=== PATIENT | female | born 1970 | race Caucasian/White ===

== ENCOUNTER 2021-11-19 11:43 | Outpatient (REF) | payer OTHER, SELFPAY ==
--- NOTE | ~2021-11-19 | XR_ITS ---
EXAMINATION: XR HIP BILATERAL WITH AP PELVIS XR HAND/WRIST, BILATERAL CLINICAL INFORMATION: Bilateral primary osteoarthritis of hip and hand. Pain in joints of bilateral hands. COMPARISON: None TECHNIQUE: 2 views views of each hip were obtained. 4 views each hand/wrist. FINDINGS: RIGHT HIP: There is no visible acute fracture or dislocation. The joint space is maintained normal. No loose bodies or spurring seen. The soft tissues are normal. LEFT HIP: There is no visible acute fracture or dislocation seen. The joint space is maintained normal. No loose bodies or spurring seen. The soft tissues are normal. RIGHT HAND/WRIST: There is no visible acute fracture, dislocation or subluxation seen. No bony erosive changes. The soft tissues are normal. XR/XR hand wrist RT IMPRESSION: Unremarkable bilateral hip exam. Unremarkable bilateral hip exam.
--- NOTE | ~2021-11-19 | XR_ITS ---
EXAMINATION: XR HIP BILATERAL WITH AP PELVIS XR HAND/WRIST, BILATERAL CLINICAL INFORMATION: Bilateral primary osteoarthritis of hip and hand. Pain in joints of bilateral hands. COMPARISON: None TECHNIQUE: 2 views views of each hip were obtained. 4 views each hand/wrist. FINDINGS: RIGHT HIP: There is no visible acute fracture or dislocation. The joint space is maintained normal. No loose bodies or spurring seen. The soft tissues are normal. LEFT HIP: There is no visible acute fracture or dislocation seen. The joint space is maintained normal. No loose bodies or spurring seen. The soft tissues are normal. RIGHT HAND/WRIST: There is no visible acute fracture, dislocation or subluxation seen. No bony erosive changes. The soft tissues are normal. XR/XR hand wrist LT IMPRESSION: Unremarkable bilateral hip exam. Unremarkable bilateral hip exam.
--- NOTE | ~2021-11-19 | XR_ITS ---
EXAMINATION: XR HIP BILATERAL WITH AP PELVIS XR HAND/WRIST, BILATERAL CLINICAL INFORMATION: Bilateral primary osteoarthritis of hip and hand. Pain in joints of bilateral hands. COMPARISON: None TECHNIQUE: 2 views views of each hip were obtained. 4 views each hand/wrist. FINDINGS: RIGHT HIP: There is no visible acute fracture or dislocation. The joint space is maintained normal. No loose bodies or spurring seen. The soft tissues are normal. LEFT HIP: There is no visible acute fracture or dislocation seen. The joint space is maintained normal. No loose bodies or spurring seen. The soft tissues are normal. RIGHT HAND/WRIST: There is no visible acute fracture, dislocation or subluxation seen. No bony erosive changes. The soft tissues are normal. XR/XR hips ZENOBIA min 3V IMPRESSION: Unremarkable bilateral hip exam. Unremarkable bilateral hip exam.
== END 2021-11-19 11:44 | disposition home or self-care (01) ==
LOC: HO.XRAY 11:43
PROVIDERS: PCP Internal Medicine; Visit Provider Student in an Organized Health Care Education/Training Program
DX: M25.542 Pain in joints of left hand (principal); M25.541 Pain in joints of right hand; M16.0 Bilateral primary osteoarthritis of hip; M25.50 Pain in unspecified joint; M79.7 Fibromyalgia; Z79.899 Other long term (current) drug therapy
CPT/HCPCS: 73110; 73130; 73522; 99202

== ENCOUNTER → 2021-12-18 11:38 | Outpatient (BNVA) | payer OTHER, SELFPAY | PROVIDERS: PCP Internal Medicine; Visit Provider Student in an Organized Health Care Education/Training Program | DX: M65.311 Trigger thumb, right thumb (principal); M70.62 Trochanteric bursitis, left hip; M79.7 Fibromyalgia | CPT/HCPCS: 20550; 99212 ==

== ENCOUNTER → 2022-01-01 09:40 | Outpatient (BNVA) | payer OTHER, SELFPAY | PROVIDERS: PCP Internal Medicine; Visit Provider Student in an Organized Health Care Education/Training Program | DX: M70.61 Trochanteric bursitis, right hip (principal) | CPT/HCPCS: 20610; 99212 ==

== ENCOUNTER → 2022-01-27 14:42 | Outpatient (BNVA) | payer OTHER, SELFPAY | PROVIDERS: PCP Internal Medicine; Visit Provider Student in an Organized Health Care Education/Training Program | DX: M70.62 Trochanteric bursitis, left hip (principal); M79.7 Fibromyalgia | CPT/HCPCS: 20610; 99212 ==

== ENCOUNTER → 2022-01-29 11:57 | Outpatient (BNVA) | payer OTHER, SELFPAY | PROVIDERS: PCP Internal Medicine; Referring Provider Internal Medicine; Visit Provider Physician Assistant | DX: E66.01 Morbid (severe) obesity due to excess calories (principal); M79.7 Fibromyalgia; F31.9 Bipolar disorder, unspecified; E11.9 Type 2 diabetes mellitus without complications; E78.00 Pure hypercholesterolemia, unspecified; K21.9 Gastro-esophageal reflux disease without esophagitis; F41.9 Anxiety disorder, unspecified; G47.33 Obstructive sleep apnea (adult) (pediatric); Z99.89 Dependence on other enabling machines and devices; J45.909 Unspecified asthma, uncomplicated; J44.9 Chronic obstructive pulmonary disease, unspecified; M19.90 Unspecified osteoarthritis, unspecified site; Z68.43 Body mass index [BMI] 50.0-59.9, adult | CPT/HCPCS: 99212; Q3014 ==

== ENCOUNTER → 2022-02-24 09:00 | Outpatient (BNVA) | payer OTHER, SELFPAY | PROVIDERS: PCP Internal Medicine; Visit Provider Counselor Mental Health | DX: F31.32 Bipolar disorder, current episode depressed, moderate (principal); F41.9 Anxiety disorder, unspecified; E66.01 Morbid (severe) obesity due to excess calories | CPT/HCPCS: 90791 ==

== ENCOUNTER → 2022-03-04 10:30 | Outpatient (BNVA) | payer OTHER, SELFPAY | PROVIDERS: PCP Internal Medicine; Visit Provider Physician Assistant | DX: E66.01 Morbid (severe) obesity due to excess calories (principal); E11.9 Type 2 diabetes mellitus without complications; E78.00 Pure hypercholesterolemia, unspecified; K21.9 Gastro-esophageal reflux disease without esophagitis; F31.9 Bipolar disorder, unspecified; G47.33 Obstructive sleep apnea (adult) (pediatric); Z99.89 Dependence on other enabling machines and devices | CPT/HCPCS: Q3014 ==

== ENCOUNTER → 2022-03-09 11:11 | Outpatient (BNVA) | payer OTHER, SELFPAY | PROVIDERS: PCP Internal Medicine; Visit Provider Dietitian, Registered | DX: E66.01 Morbid (severe) obesity due to excess calories (principal); E11.9 Type 2 diabetes mellitus without complications; Z71.3 Dietary counseling and surveillance | CPT/HCPCS: 97802 ==

== ENCOUNTER → 2022-03-19 11:00 | Outpatient (BNVA) | payer OTHER, SELFPAY | PROVIDERS: PCP Internal Medicine; Visit Provider Counselor Mental Health | DX: F31.32 Bipolar disorder, current episode depressed, moderate (principal); F41.9 Anxiety disorder, unspecified; E66.01 Morbid (severe) obesity due to excess calories | CPT/HCPCS: 90834 ==

== ENCOUNTER → 2022-03-26 14:00 | Outpatient (BNVA) | payer OTHER, SELFPAY | PROVIDERS: PCP Internal Medicine; Visit Provider Physician Assistant | DX: E66.01 Morbid (severe) obesity due to excess calories (principal); F31.32 Bipolar disorder, current episode depressed, moderate; E11.9 Type 2 diabetes mellitus without complications | CPT/HCPCS: Q3014 ==

== ENCOUNTER → 2022-04-13 11:01 | Outpatient (BNVA) | payer OTHER, SELFPAY | PROVIDERS: PCP Internal Medicine; Visit Provider Physician Assistant | DX: E66.01 Morbid (severe) obesity due to excess calories (principal); E11.65 Type 2 diabetes mellitus with hyperglycemia; Z79.4 Long term (current) use of insulin; Z79.899 Other long term (current) drug therapy | CPT/HCPCS: Q3014 ==

== ENCOUNTER → 2022-04-28 09:41 | Outpatient (BNVA) | payer OTHER, SELFPAY | PROVIDERS: PCP Internal Medicine; Visit Provider Dietitian, Registered | DX: E66.01 Morbid (severe) obesity due to excess calories (principal); E11.9 Type 2 diabetes mellitus without complications; Z71.3 Dietary counseling and surveillance | CPT/HCPCS: 97803 ==

== ENCOUNTER → 2022-05-06 10:00 | Outpatient (BNVA) | payer OTHER, SELFPAY | PROVIDERS: PCP Internal Medicine; Visit Provider Physician Assistant | DX: E66.01 Morbid (severe) obesity due to excess calories (principal) | CPT/HCPCS: Q3014 ==

== ENCOUNTER 2022-05-14 13:59 | Outpatient (REF) | payer OTHER, SELFPAY ==
[2022-05-14 14:22] LABS: MANUAL DIFF FLAG NO
[2022-05-14 14:38] LABS: Basophils Absolute Auto 0.1 X10*3/uL (0.0-0.2); Basophils Percent Auto 0.5 % (0-2); Eosinophils Absolute Auto 0.1 X10*3/uL (0.0-0.4); Eosinophils Percent Auto 1.1 % (0-4); Hematocrit 46.1 % (37.0-47.0); Hemoglobin 14.5 g/dl (12.0-16.0); Imm Gran Abs Auto 0.05 X10*3/uL (0.00-0.03); Imm Gran Pct Auto 0.4 % (0.0-0.4); Lymphocytes Absolute Auto 3.5 X10*3/uL (1.2-4.9); Lymphocytes Percent Auto 28.6 % (20-40); Mean Corpuscular HGB Conc 31.5 g/dl (31.0-35.0); Mean Corpuscular Hemoglobin 27.3 pg (27.0-33.0); Mean Corpuscular Volume 86.7 fL (80.0-98.0); Monocytes Absolute Auto 0.8 X10*3/uL (0.1-1.2); Monocytes Percent Auto 6.8 % (2-11); Neutrophils Absolute Auto 7.7 x10*3/uL (2.0-8.3); Neutrophils Percent Auto 62.6 % (45-73); Platelet Count 352 X10*3/uL (160-400); Red Blood Count 5.32 X10*6/uL (4.20-5.50); Red Cell Distribution Width 14.3 % (11.0-16.0); White Blood Count 12.4 X10*3/uL (4.8-10.8)
[2022-05-14 14:48] LABS: Estimated Average Glucose 174 mg/dL; Hemoglobin A1c % 7.7 %
[2022-05-14 15:10] LABS: Alanine Aminotransferase 18 U/L (0-31); Albumin Level 4.1 g/dL (3.5-5.0); Alkaline Phosphatase 114 U/L (39-117); Anion Gap 16 (12-20); Aspartate Amino Transferase 17 U/L (5-31); Bilirubin Total 0.3 mg/dL (0.0-1.0); Blood Urea Nitrogen 20 mg/dL (9-16); C Reactive Protein 3.72 mg/dL (< or = 0.50); Calcium 9.5 mg/dL (8.4-10.2); Carbon Dioxide 31 mmol/L (22-29); Chloride 97 mmol/L (96-108); Cholesterol 186 mg/dL; Estimated Glomerular Filt Rate 57; Glucose Random 152 mg/dL (60-115); HDL Cholesterol 42 mg/dL; Iron 53 mcg/dL (30-160); LDL Cholesterol Calculated 103 mg/dl; Percent Iron Saturation 17 % (15-50); Potassium 4.1 mmol/L (3.3-5.1); Sodium 140 mmol/L (135-145); Total Iron Binding Capacity 312 mcg/dL (228-428); Total Protein 7.3 g/dL (6.5-8.0); Triglycerides 205 mg/dL; Unsaturated Iron Binding 259 ug/dL
[2022-05-14 15:38] LABS: Ferritin 46 ng/mL (10-250); Folate 3.9 ng/mL (> or = 4.0); Insulin 93 uU/mL (2-29); TSH reflex Free T4 1.89 uIU/mL (0.32-4.0); Vitamin B12 537 pg/mL (200-900); Vitamin D 25-OH Total 18.2 ng/mL (>30)
[2022-05-18 14:14] LABS: Calcium (PTHI) 9.7 mg/dL (8.6-10.4); PTHI 64 pg/mL (16-77)
[2022-05-19 06:03] LABS: Zinc 69 mcg/dL (60-130)
[2022-05-20 09:58] LABS: Vitamin A 47 mcg/dL (38-98)
[2022-05-22 18:09] LABS: Vitamin B1 7 nmol/L (8-30)
== END 2022-05-14 14:00 | disposition home or self-care (01) ==
LOC: HO.LAB 13:59
PROVIDERS: PCP Internal Medicine; Visit Provider Physician Assistant
DX: E66.01 Morbid (severe) obesity due to excess calories (principal); E11.9 Type 2 diabetes mellitus without complications; E78.00 Pure hypercholesterolemia, unspecified; K21.9 Gastro-esophageal reflux disease without esophagitis; G47.33 Obstructive sleep apnea (adult) (pediatric); Z99.89 Dependence on other enabling machines and devices
CPT/HCPCS: 36415; 80053; 80061; 82306; 82607; 82728; 82746; 83036; 83525; 83540; 83970; 84425; 84443; 84590; 84630; 85025; 86140

== ENCOUNTER → 2022-08-20 11:30 | Outpatient (BNVA) | payer OTHER, SELFPAY | PROVIDERS: PCP Internal Medicine; Visit Provider Student in an Organized Health Care Education/Training Program | DX: M79.7 Fibromyalgia (principal); M54.50 Low back pain, unspecified; M77.12 Lateral epicondylitis, left elbow; G89.29 Other chronic pain | CPT/HCPCS: 99212 ==

== ENCOUNTER 2022-10-23 10:50 | Outpatient (AMB) | payer OTHER, SELFPAY ==
--- NOTE | 2022-10-23 11:08 | MHC.OFFVIS ---
Intake Vital Signs 10/23/22 11:13 Height 4 ft 10 in Weight 263 lb 2 oz BMI 55.0 BP 140/86 H Blood Pressure Location Rt brachial Position Sitting Respiration 18 Pulse 72 Pulse Source Pulse Oximeter Pulse Oximetry (%) 94 Oxygen Delivery Method Room Air Intake Visit Reasons: Low Back Pain, Unspecified Allergies aspirin Adverse Reaction (Unknown, Verified 10/23/22 11:05) Unknown HPI HPI Comments History of Present Illness Details Sabina is a very pleasant 52-year-old female who presents to the office today for evaluation and management of her chronic lower back pain. Patient was referred here from Rheumatology where she follows for her fibromyalgia. Patient complaining of bilateral lower back pain radiating into the thigh and around to the groin. Pain started 2 years ago after she fell in the shower. She also complains of tenderness to her coccyx though she states that she has been evaluated for this pain in the past she had x-rays and was told that there is no fracture. Today patient reports 6/10 bilateral lower back pain that she described as burning, aching and stabbing. His she denies radiation of the pain past the level of the thighs. Patient reports she has tried nonsteroidal anti-inflammatory medication with minimal relief. Had an x-ray at [place] which we do not have results of for review today. This she has not tried muscle relaxers, physical therapy, chiropractor, acupuncture, massage. She does state that she had in injections of steroids in the past that did not provide her any relief. The patient reports that she had COVID in 2020 and has been dealing with residual effects which have significantly increased her all-over joint pain. She reports the pain is worse with sitting, using the stairs or laying on either side. She is starting PT next week. She denies red flag symptoms including loss of bowel, bladder or saddle anesthesia. In terms of muscle damage condition is described as throbbing, pounding, shooting, stabbing, sharp, pinching, hot, burning, tingling, aching, exhausting and sickening. She reports her pain is negatively impacting her mobility, sleep and overall functioning. Patient denies current use of tobacco, alcohol or illicit substances. Former 2 and half pack a day smoker quit in 2015. Patient denies implantable devices, pacemaker or defibrillator. [facility] Medical History Anxiety and depression Carpal tunnel syndrome Essential hypertension Severe obstructive sleep apnea Uncontrolled type 2 diabetes mellitus with hyperglycemia Surgical History History of carpal tunnel release of both wrists Hx of section Hx of tubal ligation Family History Mother Cancer Father No problems noted. 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 Review of Systems Const All systems reviewed & are unremarkable except as noted in HPI and below Physical Exam Vital Signs: Last Vital Signs Pulse 72 10/23/22 11:13 Resp 18 10/23/22 11:13 BP 140/86 H 10/23/22 11:13 Pulse Ox 94 10/23/22 11:13 Oxygen Delivery Method Room Air 10/23/22 11:13 BMI result Body Mass Index 55.0 General: awake, alert, oriented. Answers questions appropriately. Fully engaged in examination. Skin: warm, dry, intact without visible rashes or lesions. HEENT: Normocephalic. Conjuntivae clear without exudate. Sclera non-icteric. Hearing intact. Cardiac: External chest normal in appearance. Respiratory: No signs of trauma. No signs of respiratory distress. No cough, audible wheezing or stridor. Abdomen: without gross distension. Neurological: Oriented to person, place, time and situation. Thought process intact. Psychiatric: Appropriate mood and affect. Good judgment and insight. Back/Spine/Pelvis Other: Lumbar exam: Able to stand on bilateral tiptoes and bilateral heels. Able to transition from sit to stand unassisted. Ambulates with bilaterally normal heel strike and toe off Visual inspection without gross abnormality Tender to palpation over bilateral PSIS and coccyx Nontender to palpation over midline lumbar vertebrae ROM: limited secondary to pain with extension to 10 degrees. flexion to 45degrees Strength: 5/5 BLE Sensation: intact and symmetric BLE DTR: intact and symmetric Straight leg raises with and without dorsiflexion negative bilaterally SHAYLEE positive bilaterally L>R Thigh thrust positive bilaterally L>R Gaenslens postive bilaterally L>R Assessment & Plan Assessment & Plan (1) Sacroiliac joint dysfunction of both sides: Code(s): M53.3 - Sacrococcygeal disorders, not elsewhere classified (2) Coccygeal pain, chronic: Code(s): M53.3 - Sacrococcygeal disorders, not elsewhere classified; G89.29 - Other chronic pain Plan Mitch is a very pleasant 52-year-old female presents to the office today for evaluation management of her chronic lower back pain. History, physical exam and provocative testing most consistent with bilateral sacroiliac joint dysfunction. Patient is scheduled to start physical therapy on Wednesday, she will follow up here after physical therapy. Discussed options for treatment including diagnostic interventional testing, steroid injections, peripheral nerve stimulation with Sprint, RFA and more permanent neuromodulation. If she does not receive significant relief physical therapy will plan for fluoroscopy guided bilateral diagnostic sacroiliac joint injection with local anesthetic. All questions and concerns have been answered and patient agrees with the plan. Follow up in 3 weeks, sooner if needed. Coding Level of Care Code New Pt Level 4 (15827) Diagnoses Sacroiliac joint dysfunction of both sides M53.3 Coccygeal pain, chronic M53.3; G89.29
[2022-10-23 11:13] VITALS: BP 140/86; PULSE 72; RESP 18; O2SAT 94; BMI 55.0
== END 2022-10-23 11:40 | disposition home or self-care (01) ==
PROVIDERS: PCP Internal Medicine; Visit Provider Registered Nurse Emergency
DX: M53.3 Sacrococcygeal disorders, not elsewhere classified (principal); G89.29 Other chronic pain
CPT/HCPCS: 99204

== ENCOUNTER → 2022-10-23 10:50 | Outpatient (BNVA) | payer OTHER, SELFPAY | PROVIDERS: PCP Internal Medicine; Visit Provider Registered Nurse Emergency | DX: M53.3 Sacrococcygeal disorders, not elsewhere classified (principal); G89.29 Other chronic pain | CPT/HCPCS: 99202 ==

== ENCOUNTER 2023-01-28 12:46 | Outpatient (AMB) | payer OTHER, SELFPAY ==
--- NOTE | 2023-01-28 12:53 | A.OFFVIS_ITS ---
Intake VS Expanded 01/28/23 13:11 BP 150/70 H Blood Pressure Location Rt brachial Blood Pressure Position Sitting Pulse 77 Pulse Source Pulse Oximeter Temp 96.7 F L Temperature Source Temporal Artery Scan Pulse Oximetry 97 Oxygen Delivery Method Room Air Height 4 ft 10 in Weight 254 lb BMI 53.1 Body Fat % 49.9 Body Fat Mass 126.8 Fat Free Mass 127.2 Visceral Fat Rating 20.0 Body Water % 35.7 Body Water Mass 90.6 Muscle Mass/Score 120.8 Basal Metabolic Rate/Score 1,819 Intake Visit Reasons: (OV) Re-Est SWL Allergies aspirin Adverse Reaction (Unknown, Verified 01/28/23 13:01) Unknown Medication List - Last Reconciled 01/28/23 by Ignacia Castorena PA-C atorvastatin 20 mg PO DAILY buspirone 30 mg PO BID clonazepam 0.5 mg PO BID clonidine HCl 0.3 mg PO BEDTIME fluticasone propion-salmeterol 250-50 mcg/dose (Wixela Inhub) 1 inh inhalation BID furosemide 40 mg PO DAILY hydroxyzine HCl 50 mg PO TID insulin aspart U-100 (Novolog FlexPen U-100 Insulin aspart) 1 sliding scale dose subcut USEASDIRECTD insulin glargine (Lantus Solostar U-100 Insulin) 10 units subcut QPM metoprolol tartrate 50 mg PO BID mirtazapine 45 mg PO BEDTIME omeprazole 20 mg PO DAILY oxcarbazepine 1,200 mg PO BEDTIME oxcarbazepine 600 mg PO DAILY quetiapine (Seroquel) 300 mg PO BEDTIME semaglutide (Ozempic) 1 mg subcut QWEEK thiamine mononitrate (vit B1) 50 mg (1/2 x 100 mg) PO DAILY HPI HPI Comments History of Present Illness Details SWL re-establish. Pt started our pro gram in January a t 278 lbs. She nev er bought a scale or started pre op work up and stoppe d appointments - w as not able to sad hrer to our meal o r exercise program s. Meal plan: 9 am - coffee skim m ilk and stevia 9 - 11 am - shake Pr emier powder mixed with water or ski m milk 5-6 pm - ? portion size chic brennan and about the same amount of veg etables mostly 8:3 0 - orange and/or apple - may have a Premeir bar inste ad Exercise - yanet danielle alone. Will yanet [place] for 30 minutes - 2 d/ week. She has not been clear ed by Cecy or Ulices beck yet. Tod ay: LEIDY - 0 ESS: 2 GERD: 34 Qol: 82 PFSH Medical History Anxiety and depression Carpal tunnel syndrome Essential hypertension PFSH Medical History Anxiety and depression Carpal tunnel syndrome Essential hypertension Severe obstructive sleep apnea Uncontrolled type 2 diabetes mellitus with hyperglycemia Surgical History Hx of tubal ligation Hx of section History of carpal tunnel release of both wrists Family History Mother Cancer Father No problems noted. 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 Physical Exam Vital Signs: Last Vital Signs Temp 96.7 F L 01/28/23 13:11 Pulse 77 01/28/23 13:11 BP 150/70 H 01/28/23 13:11 Pulse Ox 97 01/28/23 13:11 Oxygen Delivery Method Room Air 01/28/23 13:11 BMI result Body Mass Index 53.1 Assessment & Plan Assessment & Plan (1) Morbid obesity: Code(s): E66.01 - Morbid (severe) obesity due to excess calories Plan: Pt has lsot 24 lbs since her PROCESS DEVELOPER appt in Jan 2022 and wants to re-establish care for bariatric surgery. She thought she was following our meal and exercise plans and did not realize she had the full pre op work up to complete. She also states she has significant financial barriers to purchasing bars and shakes. We did discuss this and the meal plan after surgery, I told her she does have options for other SWL programs if she finds ours too restrictive. Meal plan: 10am- shake with coffee 2pm- shake or bar if can not afford the shake 6pm dinner fo 12 forks each protien and vegetables 8pm- bar Exercise - start LS 1 mile videso daily. Will be scheduled with colton Rollins pylori at next visit with me. If she beleives she will be able to stay in our program I will order marie rest of pre op work up then. 3 weeks me Patient is morbidly obese and is not considered stable at this time. I spent 30 minutes in total with patient reviewing/updating records, examining the patient and counseling the patient on weight management as detailed above. (2) Diabetes mellitus: Code(s): E11.9 - Type 2 diabetes mellitus without complications (3) Hypercholesterolemia: Code(s): E78.00 - Pure hypercholesterolemia, unspecified (4) GISSELLE on CPAP: Code(s): G47.33 - Obstructive sleep apnea (adult) (pediatric); Z99.89 - Dependence on other enabling machines and devices (5) COPD (chronic obstructive pulmonary disease): Comment: has oxygen tank at home for overnight Code(s): J44.9 - Chronic obstructive pulmonary disease, unspecified (6) Bipolar 1 disorder, depressed, moderate: Code(s): F31.32 - Bipolar disorder, current episode depressed, moderate Coding Level of Care Code Est Pt Level 4 (91895) Diagnoses Morbid obesity E66.01 Diabetes mellitus E11.9 Hypercholesterolemia E78.00 GISSELLE on CPAP G47.33; Z99.89 COPD (chronic obstructive pulmonary disease) J44.9 Bipolar 1 disorder, depressed, moderate F31.32
[2023-01-28 13:11] VITALS: BP 150/70; PULSE 77; TEMP 35.9; O2SAT 97; BMI 53.1
== END 2023-01-28 13:49 | disposition home or self-care (01) ==
PROVIDERS: PCP Internal Medicine; Visit Provider Physician Assistant
DX: E66.01 Morbid (severe) obesity due to excess calories (principal); E11.9 Type 2 diabetes mellitus without complications; E78.00 Pure hypercholesterolemia, unspecified; G47.33 Obstructive sleep apnea (adult) (pediatric); Z99.89 Dependence on other enabling machines and devices; J44.9 Chronic obstructive pulmonary disease, unspecified; F31.32 Bipolar disorder, current episode depressed, moderate
CPT/HCPCS: 99214

== ENCOUNTER → 2023-01-28 12:46 | Outpatient (BNVA) | payer OTHER, SELFPAY | PROVIDERS: PCP Internal Medicine; Visit Provider Physician Assistant | DX: E66.01 Morbid (severe) obesity due to excess calories (principal); E11.9 Type 2 diabetes mellitus without complications; E78.00 Pure hypercholesterolemia, unspecified; G47.33 Obstructive sleep apnea (adult) (pediatric); J44.9 Chronic obstructive pulmonary disease, unspecified; F31.32 Bipolar disorder, current episode depressed, moderate; Z99.89 Dependence on other enabling machines and devices; Z68.43 Body mass index [BMI] 50.0-59.9, adult | CPT/HCPCS: 99212 ==

== ENCOUNTER 2023-09-29 11:06 | Outpatient (AMB) | payer OTHER, SELFPAY ==
--- NOTE | 2023-09-29 11:15 | A.OFFVIS_ITS ---
Vital Signs 09/29/23 11:16 Height 4 ft 10 in Weight 255 lb 11.779 oz BMI 53.4 BP 132/74 Blood Pressure Location Rt brachial Position Sitting Pulse 76 Pulse Source Pulse Oximeter Intake Visit Reasons: FMS/CONFIRMED Intake Note: Patient last seen 08/20/22 presents today for 1 year follow up. Program Services Assistant Required: No Accompanied by: Self / Same As Patient Allergies aspirin Adverse Reaction (Unknown, Verified 09/29/23 11:16) Unknown Medication List - Last Reconciled 09/29/23 by Leticia Zaragoza MD atorvastatin 20 mg PO DAILY buspirone 30 mg PO BID clonazepam 0.5 mg PO BID clonidine HCl 0.3 mg PO BEDTIME fluticasone propion-salmeterol 250-50 mcg/dose (Wixela Inhub) 1 inh inhalation BID furosemide 40 mg PO DAILY hydroxyzine HCl 50 mg PO TID insulin aspart U-100 (Novolog FlexPen U-100 Insulin aspart) 1 sliding scale dose subcut USEASDIRECTD insulin glargine (Lantus Solostar U-100 Insulin) 10 units subcut QPM metoprolol tartrate 50 mg PO BID mirtazapine 45 mg PO BEDTIME omeprazole 20 mg PO DAILY oxcarbazepine 1,200 mg PO BEDTIME oxcarbazepine 600 mg PO DAILY quetiapine (Seroquel) 300 mg PO BEDTIME semaglutide (Ozempic) 1 mg subcut QWEEK thiamine mononitrate (vit B1) 50 mg (1/2 x 100 mg) PO DAILY HPI Comments Details: A 53-year-old female with fibromyalgia returns for follow-up. She stated that she was recently evaluated by a specialist and was told that the reason why she has right shoulder pain is because of (?an accessory rib) she will be going to see another specialist time soon. She was evaluated by Dr. Garcia and was told that she might need revision for her right hand carpal tunnel surgery. Swelling on the ulnar aspect of her hand is due to the lipoma. This was confirmed with an MRI of the hand with contrast. Surgery was suggested. She states that she has been having more triggering of her right thumb. She feels that the injection has worn off. She has lost a few lb. She remains on Ozempic and mirtazapine. She continues to push herself to do different activities such as w alking and and doing other errands. [facility] Medical History Carpal tunnel syndrome Essential hypertension Anxiety and depression Severe obstructive sleep apnea Uncontrolled type 2 diabetes mellitus with hyperglycemia Surgical History Hx of tubal ligation Hx of section History of carpal tunnel release of both wrists Family History Mother Cancer Father No problems noted. 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 Female Reproductive History Menstrual Total pregnancies: 4 Number of Living Children: 4 Ab induced: 0 Ab spontaneous: 0 Review of Systems Const Reports fatigue Musc Reports myalgias, Reports arthralgias, Reports limited range of motion and Reports stiffness Endo Reports fatigue Physical Exam Vital Signs: Last Vital Signs Pulse 76 09/29/23 11:16 BP 132/74 09/29/23 11:16 BMI result Body Mass Index 53.4 Const General: cooperative Nutritional Appearance: obese morbidly obese Limitations: no limitations HEENT Head: Yes normocephalic and Yes atraumatic Resp Effort & Inspection: normal respiratory effort and able to speak in complete sentences Skin General skin exam: no rashes or lesions noted Extrem Other: Multiple fibromyalgia tender points Soft tissue swelling and tenderness on the ulnar aspect of the right hand Triggering of right thumb Assessment & Plan Assessment & Plan (1) Fibromyalgia, primary: Code(s): M79.7 - Fibromyalgia Category: Medical Plan: This is a 53-year-old female with fibromyalgia who presents for follow-up. Doing a little better overall. She was evaluated by weight management and she did not have a good experience. She is trying to find another specialist Patient has been pushing herself to be more active recently. Doing more walking. I suggested aquatherapy. Follow-up p.r.n. (2) Lipoma of hand: Code(s): D17.20 - Benign lipomatous neoplasm of skin and subcutaneous tissue of unspecified limb Category: Medical Plan: Follow-up with Dr. Garcia (3) Trigger finger of right thumb: Code(s): M65.311 - Trigger thumb, right thumb Category: Medical Plan: Follow-up with Dr. Garcia Plan I spent 15 minutes reviewing patient's chart, evaluating patient, counseling patient and documenting in the chart Coding Level of Care Code Est Pt Level 3 (16758) Diagnoses Fibromyalgia, primary M79.7 Lipoma of hand D17.20 Trigger finger of right thumb M65.311
[2023-09-29 11:16] VITALS: BP 132/74; PULSE 76; BMI 53.4
== END 2023-09-29 11:42 | disposition home or self-care (01) ==
PROVIDERS: PCP Internal Medicine; Visit Provider Student in an Organized Health Care Education/Training Program
DX: M79.7 Fibromyalgia (principal); D17.20 Benign lipomatous neoplasm of skin and subcutaneous tissue of unspecified limb; M65.311 Trigger thumb, right thumb
CPT/HCPCS: 99213

== ENCOUNTER → 2023-09-29 11:06 | Outpatient (BNVA) | payer OTHER, SELFPAY | PROVIDERS: PCP Internal Medicine; Visit Provider Student in an Organized Health Care Education/Training Program | DX: M79.7 Fibromyalgia (principal); M65.311 Trigger thumb, right thumb; D17.20 Benign lipomatous neoplasm of skin and subcutaneous tissue of unspecified limb | CPT/HCPCS: 99212 ==